=== PATIENT | male | born 1980 | race Caucasian/White ===

== ENCOUNTER 2017-01-12 17:54 | Emergency (ER) | payer OTHER ==
[~2017-01-12] VITALS: Ht 175.3 cm; Wt 102.5 kg
[2017-01-12 20:10] VITALS: BP 156/96
== END 2017-01-12 20:10 | disposition home or self-care (01) ==
LOC: ED 17:54
DX: M54.5 Low back pain (principal); E11.9 Type 2 diabetes mellitus without complications; R03.0 Elevated blood-pressure reading, without diagnosis of hypertension; Z88.2 Allergy status to sulfonamides; Z88.1 Allergy status to other antibiotic agents; Z79.899 Other long term (current) drug therapy

== ENCOUNTER 2017-05-06 13:30 | Emergency (ER) | payer BC ==
[~2017-05-06] VITALS: Ht 175.3 cm; Wt 84.8 kg
[2017-05-06 20:14] LABS: BASOPHIL % 0.9 % (0-2); PLATELET COUNT 260 x10^3mcL (130-400)
[2017-05-06 20:21] LABS: CARBON DIOXIDE 30.5 mmol/L (21-32); CHLORIDE SERUM 104 mmol/L (98-107); CREATININE SERUM 1.1 mg/dL (0.7-1.3); GFR1 > 60 mL/min; GLUCOSE SERUM 118 mg/dL (74-106); POTASSIUM SERUM 3.8 mmol/L (3.5-5.1); SODIUM SERUM 140 mmol/L (136-145)
[2017-05-06 20:22] VITALS: BP 143/84
[2017-05-06 20:31] LABS: ALKALINE PHOSPHATASE 75 U/L (46-116); ALT/SGPT 50 U/L (16-63); AST/SGOT 31 U/L (15-37); BILIRUBIN TOTAL 1.41 mg/dL (0.20-1.00); TOTAL PROTEIN, SERUM 7.6 g/dL (6.4-8.2)
[2017-05-06 21:17] LABS: ERYTHROCYTE SED RATE 11 mm/hr (0-15)
== END 2017-05-06 20:22 | disposition home or self-care (01) ==
LOC: ED 13:30
PROVIDERS: Emergency Medicine
DX: G51.9 Disorder of facial nerve, unspecified (principal); E11.9 Type 2 diabetes mellitus without complications; Z79.4 Long term (current) use of insulin; Z86.69 Personal history of other diseases of the nervous system and sense organs; Z88.1 Allergy status to other antibiotic agents; Z91.048 Other nonmedicinal substance allergy status
CPT/HCPCS: 36415; 82962; J7040

== ENCOUNTER 2018-12-08 05:36 | Emergency (ER) | payer OTHER ==
[~2018-12-08] VITALS: Ht 175.3 cm; Wt 86.2 kg
[2018-12-08 05:44] VITALS: BP 152/93; Ht 175.3 cm; Wt 86.2 kg
== END 2018-12-08 07:12 | disposition home or self-care (01) ==
LOC: ED 05:36
DX: J20.9 Acute bronchitis, unspecified (principal); E11.9 Type 2 diabetes mellitus without complications; I10 Essential (primary) hypertension; F41.9 Anxiety disorder, unspecified; Z88.2 Allergy status to sulfonamides

== ENCOUNTER 2019-08-26 21:53 | Emergency (ER) | payer BC ==
[~2019-08-26] VITALS: Ht 175.3 cm; Wt 88.0 kg
[2019-08-26 21:54] VITALS: Ht 175.3 cm; Wt 88.0 kg
[2019-08-27 04:39] LABS: CALCIUM 8.4 mg/dL (8.5-10.1); CHLORIDE SERUM 106 mmol/L (98-107); CREATININE SERUM 1.3 mg/dL (0.7-1.3); GFR1 > 60 mL/min; GLUCOSE SERUM 242 mg/dL (74-106); POTASSIUM SERUM 3.6 mmol/L (3.5-5.1); SODIUM SERUM 142 mmol/L (136-145)
[2019-08-27 04:47] VITALS: BP 179/93
== END 2019-08-27 05:25 | disposition home or self-care (01) ==
LOC: ED 21:53
PROVIDERS: Emergency Medicine
DX: E11.65 Type 2 diabetes mellitus with hyperglycemia (principal); I10 Essential (primary) hypertension; Z88.2 Allergy status to sulfonamides; Z88.1 Allergy status to other antibiotic agents
CPT/HCPCS: 36415; J1885

== ENCOUNTER 2019-12-16 14:22 | Emergency (ER) | payer MEDICAID ==
[~2019-12-16] VITALS: Ht 175.3 cm; Wt 85.3 kg
[2019-12-16 14:27] VITALS: Ht 175.3 cm; Wt 85.3 kg
[2019-12-16 15:09] LABS: CALCIUM 8.8 mg/dL (8.5-10.1); CARBON DIOXIDE 28.4 mmol/L (21-32); CREATININE SERUM 1.6 mg/dL (0.7-1.3); POTASSIUM SERUM 4.2 mmol/L (3.5-5.1)
[2019-12-16 15:16] LABS: BILIRUBIN TOTAL 0.8 mg/dL (0.20-1.00); TOTAL PROTEIN, SERUM 6.7 g/dL (6.4-8.2)
[2019-12-16 15:18] LABS: ALBUMIN 3.1 g/dL (3.4-5.0)
[2019-12-16 15:21] LABS: BASOPHIL % 0.9 % (0-2); PLATELET COUNT 247 x10^3mcL (130-400); RED CELL DISTRIBUTION WIDTH 12.7 % (11.5-14.5)
[2019-12-16 16:29] VITALS: BP 163/89
== END 2019-12-16 16:29 | disposition home or self-care (01) ==
LOC: ED 14:22
PROVIDERS: Emergency Medicine
DX: N23 Unspecified renal colic (principal); I10 Essential (primary) hypertension; E11.9 Type 2 diabetes mellitus without complications; Z88.1 Allergy status to other antibiotic agents; Z88.2 Allergy status to sulfonamides
CPT/HCPCS: J1885; J2405; J7030

== ENCOUNTER 2020-08-16 20:08 | Emergency (ER) | payer OTHER ==
[~2020-08-16] VITALS: Ht 175.3 cm; Wt 88.5 kg
[2020-08-16 20:10] VITALS: BP 165/99; Ht 175.3 cm; Wt 88.5 kg
== END 2020-08-16 21:57 | disposition home or self-care (01) ==
LOC: ED 20:08
DX: U07.1 COVID-19 (principal); J12.89 Other viral pneumonia; I10 Essential (primary) hypertension; E11.9 Type 2 diabetes mellitus without complications; Z88.2 Allergy status to sulfonamides; Z88.1 Allergy status to other antibiotic agents

== ENCOUNTER 2020-08-21 22:43 | Emergency (ER) | payer OTHER, SELFPAY ==
[~2020-08-21] VITALS: Ht 175.3 cm; Wt 88.5 kg
[2020-08-21 22:46] VITALS: Ht 175.3 cm; Wt 88.5 kg
[2020-08-22 00:19] VITALS: BP 175/100
== END 2020-08-22 00:19 | disposition home or self-care (01) ==
LOC: ED 22:43
DX: U07.1 COVID-19 (principal); I10 Essential (primary) hypertension; E11.9 Type 2 diabetes mellitus without complications; Z88.1 Allergy status to other antibiotic agents; Z88.2 Allergy status to sulfonamides
CPT/HCPCS: J1100

== ENCOUNTER 2020-09-06 14:35 | Emergency (ER) | payer OTHER, SELFPAY ==
[~2020-09-06] VITALS: Ht 175.3 cm; Wt 88.5 kg
[~2020-09-06 14:35] MED LIST: ADA30 PO; ATORVASTATIN CA20 M1 PO; D-10001 TAB PO; FORTAMET500 M1 PO; GLIPIZIDE XL5 M2 PO; NOR5 PO; TESSALON PERLE100 MG PO; VENTOLIN H0.09 MG/A1 INH; VITC PO; ZESTRIL20 MG PO; ZINC SULFATE220 MG PO; ZIT250 PO
[2020-09-06 14:36] VITALS: Ht 175.3 cm; Wt 88.5 kg
[2020-09-06 17:18] LABS: BASOPHIL % 0.7 % (0.2-1.5); PLATELET COUNT 311 x10^3mcL (152-348); RED CELL DISTRIBUTION WIDTH 13.1 % (12.1-16.2)
[2020-09-06 17:31] LABS: CALCIUM 8.8 mg/dL (8.5-10.1); CARBON DIOXIDE 26.2 mmol/L (21-32); CREATININE SERUM 2.5 mg/dL (0.7-1.3); POTASSIUM SERUM 4.8 mmol/L (3.5-5.1)
[2020-09-06 17:35] LABS: BILIRUBIN TOTAL 0.4 mg/dL (0.20-1.00); TOTAL PROTEIN, SERUM 6.9 g/dL (6.4-8.2)
[2020-09-06 17:37] LABS: ALBUMIN 3.3 g/dL (3.4-5.0)
[2020-09-06 18:49] VITALS: BP 148/71
== END 2020-09-06 18:49 | disposition home or self-care (01) ==
LOC: ED 14:35
DX: N17.9 Acute kidney failure, unspecified (principal); R10.13 Epigastric pain; E11.65 Type 2 diabetes mellitus with hyperglycemia; I10 Essential (primary) hypertension; Z88.2 Allergy status to sulfonamides; Z88.1 Allergy status to other antibiotic agents